=== PATIENT | female | born 1970 | race Caucasian/White ===

== ENCOUNTER 2017-12-18 05:28 | Inpatient (IN) | payer OTHER ==
[~2017-12-18] VITALS: Ht 154.9 cm; Wt 48.5 kg
[2017-12-18] VITALS (14 sets, daily range): BP systolic 121–156; BP diastolic 79–97
[~2017-12-18 05:28] MED LIST: BENADRYL25 MG ORAL; LOSARTAN-HCTZ1 EAC1 ORAL; PANTOPRAZOLE SO40 MG ORAL; WELLBUTRIN SR100 MG ORAL; ZOLOFT100 MG ORAL
[2017-12-18] MEDS ORDERED: LR 1000ml 1,000 ML IVLG SCH (06:10)
--- NOTE | 2017-12-18 06:11 | Anethesia Preoperative Eval ---
Anesthesia Pre-op PMH/ROS General Date of Evaluation: Dec 18, 2017 Time of Evaluation: 07:26 Anesthesiologist: Elza ASA Score: ASA 2 Mallampati Score Class I : Soft palate, uvula, fauces, pillars visible Class II: Soft palate, uvula, fauces visible Class III: Soft palate, base of uvula visible Class IV: Only hard plate visible Mallampati Classification: Class I Surgeon: Ally Diagnosis: Back Pain Surgical Procedure: L3-4 Foraminotomy, Removal of Hardware Anesthesia History: none Family History: no anesthesia problems Allergies: Coded Allergies: No Known Allergies (Unverified , 12/15/17) Medications: see eMAR Past Medical History Cardiovascular: Reports: HTN Pulmonary: Reports: asthma Gastrointestinal/Genitourinary: Reports: GERD Hematology/Immune: Reports: anemia PSxH Narrative: L/S SX, C/S SX Anesthesia Pre-op Phys. Exam Physician Exam Last Vital Signs Date Time Temp Pulse Resp B/P (MAP) Pulse Ox O2 Delivery O2 Flow Rate FiO2 12/18/17 06:05 98.5 88 20 146/89 99 Room Air Constitutional: NAD Neurologic: CN 2-12 intact Cardiovascular: RRR Respiratory: CTA Gastrointestinal: S/NT/ND Airway Exam Mallampati Score: Class I MO: full ROM: limited Teeth: intact Anesthesia Pre-op A/P Risk Assessment & Plan Assessment: ASA 2 Plan: GA, BIS, GlideScope Status Change Before Surgery: No Pre-Antibiotics Dru Grams Ancef IV Given Within 1 Hr of Incision: Yes Time Given: 07:46 Marlon Bertrand MD Dec 18, 2017 06:11
[2017-12-18] MEDS ORDERED: Ketorolac 30mg Inj IV PRN (06:15)
[2017-12-18] MEDS ORDERED: Acetaminophen (Non formulary) 100 ML IV ONE (06:15)
[2017-12-18] MEDS ORDERED: Atropine Inj 1mg/10ml Syr IV PRN (06:15)
[2017-12-18] MEDS ORDERED: DiphenhydrAMINE 50mg/ml Inj IVP PRN ×2 (06:15→10:00)
[2017-12-18] MEDS ORDERED: oxyCODONE HCL/Acetaminophen 5/325mg ORAL PRN (06:15)
[2017-12-18] MEDS ORDERED: Midazolam 2mg/2ml Inj IVP PRN (06:15)
[2017-12-18] MEDS ORDERED: LORazepam Inj 2mg/ml 1ml IV PRN (06:15)
[2017-12-18] MEDS ORDERED: Ketorolac 60mg Inj IV PRN (06:15)
[2017-12-18] MEDS ORDERED: Hydromorphone 0.5mg/0.5ml inj IVP PRN (06:15)
[2017-12-18] MEDS ORDERED: AMLODIPINE BESYL5 MG ORAL (06:15)
[2017-12-18] MEDS ORDERED: fentaNYL 100 mcg/2 mL IV PRN (06:15)
[2017-12-18] MEDS ORDERED: Norco 5mg/325mg tab ORAL PRN (06:15)
[2017-12-18] MEDS ORDERED: Labetalol 5mg/ml 20ml vial IV PRN (06:15)
[2017-12-18] MEDS ORDERED: HYDROcodone/Acetamin 7.5/325 tab ORAL PRN (06:15)
[2017-12-18] MEDS ORDERED: MELOXICAM15 MG PO (06:16)
[2017-12-18] MEDS ORDERED: Bacitracin 50000 Units Vial ONE (06:20)
[2017-12-18] MEDS ORDERED: Ropivacaine 5mg/ml Vial 30ml INJ ONE (06:20)
[2017-12-18] MEDS ORDERED: Thrombin 5000 units spray kit TOPIC ONE (06:20)
[2017-12-18] MEDS ORDERED: Thrombin 5000 units TOPIC ONE (06:20)
[2017-12-18] MEDS ORDERED: Gelfoam Absorbable 1gm powder pkt TOPIC ONE (06:20)
[2017-12-18] MEDS ORDERED: Lidocaine 1% 10mg/ml/Epi 0.005mg/ml 30ml vial INJ ONE (06:21)
--- NOTE | 2017-12-18 07:20 | Pre-Procedure Note/Attestation ---
Pre-Procedure Note/Attestation Complete Prior to Procedure Planned Procedure: left Procedure Narrative: Painful retained Lumbar hardware L4-5, L5/S1 with Left sided. with Leg pain Planned: Remove hardware, perform foraminotomy. Attestation I attest that I discussed the nature of the procedure; its benefits; risks and complications; and alternatives (and the risks and benefits of such alternatives ), prior to the procedure, with the patient (or the patient's legal automotive sales representative). I attest that, if there was a reasonable possibility of needing a blood transfusion, the patient (or the patient's legal automotive sales representative) was given the [place] [employer] standardized written summary, pursuant to the [place] Blood Safety Act ([place] Health and Safety Code # 1645, as amended). I attest that I re-evaluated the patient just prior to the surgery and that there has been no change in the patient's H&P, except as documented below: LEEANN MALDONADO Dec 18, 2017 07:20
[2017-12-18] MEDS ORDERED: Metoclopramide 10mg/2ml Inj ONE (07:30)
[2017-12-18] MEDS ORDERED: Dexamethasone 4mg/ml vial ONE (07:30)
[2017-12-18] MEDS ORDERED: Lidocaine 1% Plain 30 ml INJ ONE (07:30)
[2017-12-18] MEDS ORDERED: Neostigmine 1mg/ml 10ml Inj ONE (07:30)
[2017-12-18] MEDS ORDERED: Zemuron 50mg/5ml Inj IV ONE (07:30)
[2017-12-18] MEDS ORDERED: Naloxone 0.4mg/ml Inj ONE (07:30)
[2017-12-18] MEDS ORDERED: LR 1000ml ONE (07:30)
[2017-12-18] MEDS ORDERED: NS Irrig 1000ml ONE (07:30)
[2017-12-18] MEDS ORDERED: Sodium Chloride 10ml vial INJ ONE (07:30)
[2017-12-18] MEDS ORDERED: fentaNYL 100 mcg/2 mL IV ONE (07:30)
[2017-12-18] MEDS ORDERED: Lidocaine 1% MPF 10mg/ml 5ml ONE (07:30)
[2017-12-18] MEDS ORDERED: Propofol 1,000mg/ 100ml btl IV ONE (07:30)
[2017-12-18] MEDS ORDERED: Glycopyrrolate 0.2mg/ml 1ml Vial ONE (07:30)
[2017-12-18] MEDS ORDERED: Sterile Water Irrig 1000ml IRRIG ONE (07:30)
--- NOTE | 2017-12-18 08:09 | Immediate Post-Op Evaluation ---
Immediate Post-Op Evalulation Immediate Post-Op Evalulation Procedure: L3-4 Foraminotomy, Removal of Hardware Date of Evaluation: Dec 18, 2017 Time of Evaluation: 10:14 IV Fluids: 1000 LR Blood Products: 0 Estimated Blood Loss: 30 Urinary Output: 0 Blood Pressure Systolic: 134 Blood Pressure Diastolic: 89 Pulse Rate: 84 Respiratory Rate: 16 O2 Sat by Pulse Oximetry: 100 Temperature (Fahrenheit): 98.5 Pain Score (1-10): 3 Nausea: No Vomiting: No Complications 0 Patient Status: awake, reacts, patent, extubated, none Hydration Status: adequate Dru Grams Ancef IV Given Within 1 Hr of Incision: Yes Time Given: 07:46 Marlon Bertrand MD Dec 18, 2017 08:09
[2017-12-18] MEDS ORDERED: PCA Education Pamphlet MISC ONE (10:00)
[2017-12-18] MEDS ORDERED: Acetaminophen 650 MG SUPP RECTAL PRN (10:00)
[2017-12-18] MEDS ORDERED: HYDROmorphone 1mg/ml Carpuject SUBQ PRN (10:00)
[2017-12-18] MEDS ORDERED: Rate Change PCA 1 Each MISC PRN (10:00)
[2017-12-18] MEDS ORDERED: Naloxone 0.4mg/ml Inj IVP PRN ×2 (10:00)
[2017-12-18] MEDS ORDERED: HYDROmorphone 1mg/ml Carpuject IVP PRN (10:00)
--- NOTE | 2017-12-18 10:02 | Operative Note - PDOC ---
Operative Note Operative Note Pre-op Diagnosis: Retained painful lumbar hardware, L4-S1. Left L3-4 Foraminal stenosis. Post-op Diagnosis: same as pre-op Operative Findings: consistent w/pre-op dx studies Surgeon: Ally [employer] Research Scientist: YISEL Maldonado Anesthesiologist: Ayo Bautista Anesthesia: general Specimen: yes Complications: none Condition: stable Estimated Blood Loss: minimal Drains: none Implant(s) used?: No LEEANN MALDONADO Dec 18, 2017 10:02
[2017-12-18] MEDS ORDERED: PCA HYDROmorphone 1mg/ml 30 ML IV PRN (11:00)
[2017-12-18] MEDS: LORazepam 1mg tab ORAL PRN (13:04)
[2017-12-18] MEDS ORDERED: ceFAZolin sod 1 GM in D5W 55 ML IV SCH (14:00)
[2017-12-18] MEDS ORDERED: ceFAZolin sod 1 GM in NS 55 ML IV SCH (15:15)
--- NOTE | 2017-12-18 15:15 | Operative Note - Dictated ---
DATE OF OPERATION: 12/18/2017 SURGEON: Cristobal Canales M.D. ARCH CUSHION PRESS OPERATOR: Gail Glover ANESTHESIOLOGIST: Marlon Bertrand M.D. ANESTHESIA: General endotracheal with arterial blood pressure monitoring. PREOPERATIVE DIAGNOSES: 1. Status post multiple prior lumbar surgeries with an anterior interbody graft construct at 4-5 and 51 levels with good reconstitution of disk height and evidence of bony union. 2. Posterior decompression with left-sided pedicle screws at L4-L5, and S1 along with posterior and posterolateral graft. 3. Significant increase in left leg pain in an L3 and L4 root distribution more recently with scan showing pressure on the traversing L4 root and the exiting L3 root from severe collapse at the 3-4 disk. POSTOPERATIVE DIAGNOSES: 1. Status post multiple prior lumbar surgeries with an anterior interbody graft construct at 4-5 and 51 levels with good reconstitution of disk height and evidence of bony union. 2. Posterior decompression with left-sided pedicle screws at L4-L5, and S1 along with posterior and posterolateral graft. 3. Significant increase in left leg pain in an L3 and L4 root distribution more recently with scan showing pressure on the traversing L4 root and the exiting L3 root from severe collapse at the 3-4 disk. OPERATIVE PROCEDURE: Posterior approach left-sided for removal of pedicle screw and shelly hardware with decompression of the canal at L3-L4 consisting of takedown fusion, decompression by partial semi hemilaminotomy, foraminotomy, and microneurolysis. The patient was induced in the supine position and then turned to the prone position on a Bowen frame. The frame was maximally flexed. Her arms and legs particularly the peroneal nerve and brachial plexus were protected. The head was gently flexed forward. The eyes were protected as well. An incision was made a centimeter half to the left of the old incision extending 1 cm more proximally and distally to the mid point of the old 4-inch incision. The incision was carried down through skin and subcutaneous tissue. The extensor muscles were divided on the lateral aspect overlying the hardware and the paraspinous muscles were divided identifying the top of the pedicle screw construct with its locking apparatus at L3-L4 and S1. There was bone grown around the entire cradle of the pedicle screw and into the top locking nut. This was removed with dissection using curettes, Kerrisons, and the Midas bur. Once the top locking nut was removed additional bone was removed from around the vertical shelly which could then be removed. All three pedicle screws were removed subsequently. Hemostasis was obtained by placing thrombin and Gelfoam in the pedicle screw holes. The position of the four pedicle was obvious from the screw hole and the dissection was then begun from left lateral by identifying the transverse process of L3 and dissecting it medially to the lateral wall of the canal. There was much overgrown bone from the fusion. The fusion mass was taken down and the canal was entered on the left side. There was a remnant of the superior facet. The edge was identified and cleared with blunt dissection using angled curette. The left side was then compressed proximally past the pedicle of L3 using small Kerrison. The exiting root of 3 was identified and cleared of all surrounding scar. There was a collection of soft tissue on the left side of the disk at 3-4 which was removed sharply with a rongeur and with Kerrison. The disk space could not be entered because of complete collapse of the disk. The four traversing root was followed distally around the identified pedicle of L4 and the central canal was decompressed as was the L4 pedicle. The wound was copiously irrigated. There was some diffuse superficial bleeding which was controlled with pledgets of Gelfoam. FloSeal was then placed over the wound and it was closed in layers using number 1 Vicryl, 2-0, and nylon for skin. Blood loss was estimated at 100 mL. The patient was placed in a compression dressing and returned to recovery room in good condition. Cristobal Canales M.D. DR: Dieter JOB#: [id number] CC:
--- NOTE | 2017-12-18 17:34 | General Progress Note ---
Assessment/Plan Assessment/Plan Retained painful lumbar hardware, L4-S1. Left L3-4 Foraminal stenosis. anxiety PLAN 1. incentive spirometry 2. DVT prophylaxis 3. PT evaluation and therapy 4. Hydration 5. Pain management 6. discharge once stable with outpatient follow up Subjective Allergies: Coded Allergies: No Known Allergies (Unverified , 12/15/17) Subjective post op pain and anxiety Objective Last 24 Hour Vital Signs Date Time Temp Pulse Resp B/P (MAP) Pulse Ox O2 Delivery O2 Flow Rate FiO2 12/18/17 16:00 97.0 83 18 125/79 97 12/18/17 14:19 97 155/85 12/18/17 14:00 18 12/18/17 12:30 97.7 82 18 134/85 97 12/18/17 11:35 13 12/18/17 11:35 98.3 86 12 156/90 100 Nasal Cannula 3.0 12/18/17 11:20 86 15 148/88 100 Nasal Cannula 3.0 12/18/17 11:05 12 12/18/17 11:05 85 15 151/92 100 Nasal Cannula 3.0 12/18/17 10:55 90 16 148/89 100 Nasal Cannula 3.0 12/18/17 10:53 98.5 12/18/17 10:53 98.5 12/18/17 10:50 13 12/18/17 10:45 87 12 143/94 100 Nasal Cannula 3.0 12/18/17 10:35 11 12/18/17 10:35 86 11 148/95 100 Nasal Cannula 3.0 12/18/17 10:25 86 19 147/97 100 Simple Mask 6.0 12/18/17 10:22 16 12/18/17 10:13 82 21 141/96 100 Simple Mask 6.0 12/18/17 10:08 81 12 145/94 100 Simple Mask 6.0 12/18/17 10:03 98.5 84 23 134/89 100 Simple Mask 6.0 12/18/17 10:03 84 16 100 12/18/17 06:05 98.5 88 20 146/89 99 Room Air Height (Feet): 5 Height (Inches): 1.00 Weight (Pounds): 107 Objective WDWN NAD clear breath sounds bilaterally without rhonchi or wheeze [id number] without MRG NABS nontender no HSM no CCE nonfocal TISH MORRISON Dec 18, 2017 17:34
[2017-12-18] MEDS: Sertraline 100mg tab ORAL SCH (18:02)
[2017-12-18] MEDS: ceFAZolin sod 1 GM in NS 55 ML IV SCH (18:02)
[2017-12-18] MEDS: BuPROPion SR 100mg tab ORAL SCH (18:07)
--- NOTE | 2017-12-18 18:12 | Diagnostic Imaging Report ---
Indication: Reason For Exam: PAIN Technique: Intraoperative image; Total fluoroscopy time: 3 seconds. Fluoroscopy dose: 0.33 mGy Operating Physician: LEEANN MOHR Comparison: None. Findings: Single fluoroscopic intraoperative image demonstrates surgical tools projecting over the lower lumbar spine. Surgical hardware noted projecting over the lower lumbar spine and sacrum. Additional surgical material projecting just laterally to the spine. Impression: Single intraoperative image, as described. Please see operative report.
[2017-12-18] MEDS: PCA shift volume MISC SCH (19:20)
[2017-12-19] MEDS: ceFAZolin sod 1 GM in NS 55 ML IV SCH ×2 (00:33→08:09)
[2017-12-19 00:46] VITALS: BP 118/77
[2017-12-19 04:36] VITALS: BP 109/70
[2017-12-19] MEDS: PCA shift volume MISC SCH (07:10)
--- NOTE | 2017-12-19 07:34 | 48 Hour Post Anesthesia Eval ---
Post Anesthesia Evaluation Procedure: L3-4 Foraminotomy, Removal of Hardware Date of Evaluation: Dec 19, 2017 Time of Evaluation: 06:30 Blood Pressure Systolic: 109 0: 70 Pulse Rate: 84 Respiratory Rate: 20 Temperature (Fahrenheit): 97.4 O2 Sat by Pulse Oximetry: 100 Airway: patent Nausea: No Vomiting: No Pain Intensity: 2 Hydration Status: adequate Cardiopulmonary Status: at baseline Mental Status/LOC: patient returned to baseline Post-Anesthesia Complications: 0 Follow-up care needed: N/A - further care as per primary team TOMMY DAN M.D. Dec 19, 2017 07:34
[2017-12-19 08:00] VITALS: BP 102/55
[2017-12-19] MEDS: Sertraline 100mg tab ORAL SCH ×2 (08:02→18:03)
[2017-12-19] MEDS: BuPROPion SR 100mg tab ORAL SCH ×2 (08:03→18:03)
[2017-12-19] MEDS: LORazepam 1mg tab ORAL PRN (08:08)
[2017-12-19 12:00] VITALS: BP 110/72
[2017-12-19 16:00] VITALS: BP 105/54
--- NOTE | 2017-12-19 16:39 | General Progress Note ---
Assessment/Plan Assessment/Plan Retained painful lumbar hardware, L4-S1. Left L3-4 Foraminal stenosis. anxiety PLAN 1. incentive spirometry 2. DVT prophylaxis 3. PT evaluation and therapy 4. Hydration as neede 5. Pain management 6. discharge once stable with outpatient follow up Subjective Allergies: Coded Allergies: No Known Allergies (Unverified , 12/15/17) Subjective post op pain and anxiety improved Objective Last 24 Hour Vital Signs Date Time Temp Pulse Resp B/P (MAP) Pulse Ox O2 Delivery O2 Flow Rate FiO2 12/19/17 12:00 98.3 79 18 110/72 100 Room Air 12/19/17 12:00 18 12/19/17 08:07 90 108/64 12/19/17 08:00 97.6 87 17 102/55 100 Room Air 12/19/17 08:00 18 12/19/17 07:34 84 20 100 12/19/17 04:36 97.4 84 20 109/70 100 12/19/17 04:00 18 12/19/17 00:46 98.4 63 18 118/77 99 12/19/17 00:00 18 12/18/17 20:11 98.7 68 19 121/81 99 12/18/17 20:00 18 Intake and Output 12/18/17 12/19/17 19:00 07:00 Intake Total 1375 ml 1202.5 ml Output Total 30 ml Balance 1345 ml 1202.5 ml Intake Oral 360 ml IV Total 1375 ml 842.5 ml Output Estimated Blood Loss 30 ml # Voids 1 Height (Feet): 5 Height (Inches): 1.00 Weight (Pounds): 107 Objective WDWN NAD clear breath sounds bilaterally without rhonchi or wheeze [id number] without MRG NABS nontender no HSM no CCE nonfocal TISH MORRISON Dec 19, 2017 16:39
[2017-12-19] MEDS ORDERED: Tums 500mg ORAL PRN (17:30)
[2017-12-19 20:00] VITALS: BP 109/64
[2017-12-20] VITALS: BP 109/64
[2017-12-20 04:00] VITALS: BP 140/74
[2017-12-20 08:37] VITALS: BP 122/78
[2017-12-20 08:38] VITALS: BP 122/78
[2017-12-20] MEDS: Sertraline 100mg tab ORAL SCH (08:38)
[2017-12-20] MEDS: BuPROPion SR 100mg tab ORAL SCH (08:38)
[2017-12-20] MEDS ORDERED: Flu Vaccine Quadrivalent 0.5ml IM ONE (11:30)
--- NOTE | 2017-12-20 16:46 | General Progress Note ---
Assessment/Plan Assessment/Plan Retained painful lumbar hardware, L4-S1. Left L3-4 Foraminal stenosis. anxiety PLAN dc home follow up with surgery has pain medications taking po and stable Subjective Allergies: Coded Allergies: No Known Allergies (Unverified , 12/15/17) Subjective cleared for dc Objective Last 24 Hour Vital Signs Date Time Temp Pulse Resp B/P (MAP) Pulse Ox O2 Delivery O2 Flow Rate FiO2 12/20/17 08:38 79 122/78 12/20/17 08:37 98.2 79 21 122/78 96 Room Air 12/20/17 04:00 98.0 83 18 140/74 96 Room Air 12/20/17 02:00 97.8 12/20/17 00:00 97.8 70 18 109/64 97 Room Air 12/19/17 20:00 98.5 90 18 109/64 97 Room Air Intake and Output 12/19/17 12/20/17 19:00 07:00 Intake Total 555 ml 840 ml Balance 555 ml 840 ml Intake Oral 480 ml 240 ml IV Total 75 ml 600 ml # Voids 4 4 Height (Feet): 5 Height (Inches): 1.00 Weight (Pounds): 107 Objective WDWN NAD clear breath sounds bilaterally without rhonchi or wheeze [id number] without MRG NABS nontender no HSM no CCE nonfocal TISH MORRISON Dec 20, 2017 16:46
--- NOTE | 2017-12-21 15:26 | Discharge Summary ---
Discharge Summary Hospital Course Date of Admission Dec 18, 2017 at 05:28 Date of Discharge Dec 20, 2017 at 11:42 Admitting Diagnosis HPI Jennifer Dick is a 47 year old female who was admitted on Dec 18, 2017 at 05: 28 for Loss Of Lumbar Lordosis Hospital Course [id number] Discharge Discharge Disposition Patient was discharged to Home (01) Discharge Diagnoses: Rena Edgar NP Dec 21, 2017 15:26
--- NOTE | 2017-12-21 23:30 | Discharge Summary 2 SIG ---
DATE OF ADMISSION: 12/18/2017 DATE OF DISCHARGE: 12/20/2017 SURGEON: Cristobal Canales M.D. BRIEF HOSPITAL COURSE: The patient is a 47-year-old female, who was injured while working. Date of injury was 11/13/2012. As a result, she injured her lower back and notes radiation of pain to the lower back down to her right and left leg and left hip. She also had numbness of the right and left feet, right and left leg, lower back, right and left hip, and neck. She underwent epidural injection, physical therapy, acupuncture, and pain management, however, continued to report pain with prolonged sitting, walking, and standing and is unable to sleep through the night due to pain and discomfort. She was then admitted on 12/18/2017 and underwent removal of retained painful lumbar hardware on L4-S1 with left L3-L4 foraminal stenosis. She tolerated the procedure well. Postoperatively, was given postop pain management and was encouraged use of incentive spirometry. She was placed on SCDs for DVT prophylaxis and was seen by PT and OT. She had good pain control and was working well with PT. The patient was eventually cleared home. FINAL DIAGNOSES: 1. Retained painful lumbar hardware L4-S1 and left L3-L4 foraminal stenosis. 2. Anxiety. 3. Status post lumbar surgery, refer to operative report. DISPOSITION: The patient was discharged home. DISCHARGE MEDICATIONS: Refer to medication list. DISCHARGE INSTRUCTIONS: Follow up with PMD and surgery in a week. Manuel Contreras M.D. I have been assigned to dictate discharge summary on this account and I was not involved in the patient's management. Rena Edgar N.P. DR: DICK JOB#: [id number] CC:
== END 2017-12-20 11:42 | disposition home or self-care (01) | DRG 516 ==
LOC: SDSOVERFLO 05:28 → 3E 12:21
PROC: 01NB0ZZ Release Lumbar Nerve, Open Approach (ICD-10-PCS; principal; 2017-12-18 07:00)
PROC: 0SP304Z Removal of Internal Fixation Device from Lumbosacral Joint, Open Approach (ICD-10-PCS; principal; 2017-12-18 07:00)
DX: M54.16 Radiculopathy, lumbar region (principal); T84.84XA Pain due to internal orthopedic prosthetic devices, implants and grafts, initial encounter; I10 Essential (primary) hypertension; M48.061 Spinal stenosis, lumbar region without neurogenic claudication; Z98.1 Arthrodesis status; Y83.8 Other surgical procedures as the cause of abnormal reaction of the patient, or of later complication, without mention of misadventure at the time of the procedure; J45.909 Unspecified asthma, uncomplicated; M85.80 Other specified disorders of bone density and structure, unspecified site; Z87.891 Personal history of nicotine dependence; M06.872 Other specified rheumatoid arthritis, left ankle and foot; M06.871 Other specified rheumatoid arthritis, right ankle and foot; F41.9 Anxiety disorder, unspecified
CPT/HCPCS: 36415; 72020; 76001; 86850; 86900; 86901; 87081; 90630; 94003; 94150; J2405; J2710; J2765